=== PATIENT | female | born 1995 | race African-American/Black ===

== ENCOUNTER 2016-10-07 23:17 | Emergency (ER) | payer MEDICAID ==
[2014-07-07 22:17] VITALS: BMI 36.2
[~2016-10-07 23:17] MED LIST: ACETAMINOPHEN500 M1 PO; FERROUS SULFAT325 MG; IBUPROFEN600 MG PO; PERCOCET 5-3251 TAB PO; PRENATAL COMPLE1 TAB; PRENATAL COMPLE1 TAB PO
[2016-10-08 00:35] LABS: HEMATOCRIT 34.3 % (36.0-48.0); HEMOGLOBIN 11.1 g/dL (12-16); LYMPHOCYTES 40.4 % (15-50); MCH 24.8 pg (26.0-34.0); MCHC 32.4 g/dL (31.0-37.0); MCV 76.7 fL (80.0-100.0); MEAN PLATELET VOLUME 10.4 fL (7.4-10.4); NEUTROPHILS 54.2 % (40-80); RBC 4.47 10x6/uL (4.00-5.40); RDW 17.8 % (11.5-14.5); WBC 7.3 10x3/uL (4.8-10.8)
[2016-10-08 00:36] LABS: PLATELET COUNT 304 10x3/uL (130-400)
[2016-10-08 00:49] LABS: HCG SERUM POSITIVE (NEGATIVE)
[2016-10-08 00:56] LABS: APPEARANCE CLOUDY (CLEAR); BILIRUBIN NEGATIVE (NEGATIVE); COLOR YELLOW (YELLOW); GLUCOSE NEGATIVE (NEGATIVE); KETONE SMALL mg/dL (NEGATIVE); LEUKOCYTE ESTERASE 2+ (NEGATIVE); NITRITE NEGATIVE (NEGATIVE); PH 6.5 (5.0-6.0); PROTEIN TRACE mg/dL (NEGATIVE); UROBILINOGEN NORMAL (NORMAL)
[2016-10-08 01:04] LABS: BACTERIA MANY /hpf (NONE SEEN); GRANULAR CAST 0-5 /lpf (NONE SEEN); MUCUS >1+ /lpf (NONE SEEN)
[2016-10-08 01:05] LABS: AMORPHOUS SEDIMENT >1+ /lpf (NONE SEEN); WAXY CAST RARE /lpf (NONE SEEN)
== END 2016-10-08 01:25 | disposition home or self-care (01) ==
LOC: D.ER 23:17
PROVIDERS: Emergency Medicine
DX: R10.2 Pelvic and perineal pain (principal); N76.0 Acute vaginitis; Z32.01 Encounter for pregnancy test, result positive

== ENCOUNTER 2018-11-26 14:10 | Emergency (ER) | payer MEDICAID ==
[~2018-11-26] VITALS: Ht 160 cm; Wt 113.6 kg
[2018-11-26 14:42] VITALS: Ht 160 cm; Wt 113.6 kg
[2018-11-26 16:30] LABS: BASOPHILS 0.3 % (0-2); EOSINOPHILS 2.1 % (0-7); HEMATOCRIT 35.1 % (36.0-48.0); HEMOGLOBIN 11.6 g/dL (12-16); IMMATURE GRANULOCYTES 0.3 % (0-5); LYMPHOCYTES 43.4 % (15-50); MCH 24.5 pg (26.0-34.0); MCV 74.1 fL (80.0-100.0); MEAN PLATELET VOLUME 11.1 fL (7.4-10.4); MONOCYTES 7.6 % (2-11); NEUTROPHILS 46.3 % (40-80); RBC 4.74 10x6/uL (4.00-5.40); RDW 14.5 % (11.5-14.5); WBC 6.2 10x3/uL (4.8-10.8)
[2018-11-26 16:42] LABS: PLATELET COUNT 384 10x3/uL (130-400)
[2018-11-26 16:44] LABS: ALBUMIN 3.7 g/dL (3.4-5.0); ALKALINE PHOSPHATASE 67 U/L (46-116); ALT (SGPT) 21 U/L (10-68); BILIRUBIN - TOTAL 0.49 mg/dL (0.2-1.3); CALC OSMOLALITY 278 mosm/kg (275-300); CALCIUM 8.9 mg/dL (8.5-10.1); CARBON DIOXIDE 23.3 mmol/L (21.0-32.0); CHLORIDE - SERUM 107 mmol/L (98-107); CREATININE - SERUM 0.7 mg/dL (0.6-1.3); GLUCOSE 90 mg/dL (74-106); LIPASE 87 U/L (73-393); POTASSIUM - SERUM 3.7 mmol/L (3.5-5.1); PROTEIN - SERUM 8.3 g/dL (6.4-8.2); SODIUM 141 mmol/L (136-145); UREA NITROGEN 7 mg/dL (7-18); eGFR NON AFRICAN AMERICAN > 90 mL/min (90-120)
[2018-11-26 16:55] LABS: HCG URINE NEGATIVE (NEGATIVE)
[2018-11-26 17:01] LABS: APPEARANCE CLEAR (CLEAR); BACTERIA MODERATE /hpf (NONE SEEN); BILIRUBIN NEGATIVE (NEGATIVE); COLOR YELLOW (YELLOW); GLUCOSE NEGATIVE (NEGATIVE); KETONE NEGATIVE (NEGATIVE); MUCUS >1+ /lpf (NONE SEEN); NITRITE NEGATIVE (NEGATIVE); PROTEIN TRACE mg/dL (NEGATIVE); UROBILINOGEN NORMAL (NORMAL)
[2018-11-26] MEDS ORDERED: MACROBID100 MG PO (17:52)
[2018-11-26 18:10] VITALS: BP 136/80
== END 2018-11-26 18:10 | disposition home or self-care (01) ==
LOC: D.ER 14:10
PROVIDERS: Family Medicine
DX: R10.2 Pelvic and perineal pain (principal)